=== PATIENT | female | born 1990 | race Caucasian/White ===

== ENCOUNTER 2016-05-26 08:37 | Emergency (ER) | payer OTHER ==
[2016-05-26 09:38] LABS: RBC URINE 57 /hpf (0-3); URINE BACTERIA OCC (<OCC); URINE BILIRUBIN NEGATIVE (NEGATIVE); URINE BLOOD 3+ (NEGATIVE); URINE COLOR Yellow (YELLOW); URINE GLUCOSE (UA) NORMAL (Normal); URINE KETONE NEGATIVE (NEGATIVE); URINE LEUKOCYTE ESTERASE 3+ Leu/uL (Negative); URINE PROTEIN 2+ mg/dL (NEGATIVE); URINE UROBILINOGEN NORMAL mg/dL (0.2-1.0); WBC CLUMPS MANY /hpf; WBC URINE 649 /hpf (0-5)
--- NOTE | 2016-05-26 10:42 | C.PDOC ---
History Of Present Illness 26 yr old female presents to the ER for evaluation of right flank pain, gradually worsening for the past 3 weeks. Patient reports of dysuria and intermittent hematuria. Patient denies fever, chills, nausea, vomiting, abdominal pain, diarrhea, vaginal irritation, vaginal discharge, weakness or numbness. Time Seen by Provider: 05/26/16 09:23 Chief Complaint (Nursing): Back Pain History Per: Patient History/Exam Limitations: no limitations Onset/Duration Of Symptoms: Gradual (Gradually worsening for the past 3 weeks) Past Medical History Reviewed: Historical Data, Nursing Documentation, Vital Signs Vital Signs: Last Vital Signs Temp 97.1 F L 05/26/16 11:20 Pulse 69 05/26/16 11:20 Resp 18 05/26/16 11:20 BP 104/69 05/26/16 11:20 Pulse Ox 100 05/26/16 11:20 Family History: States: No Known Family Hx - Social History Hx Alcohol Use: No Hx Substance Use: No - Immunization History Hx Tetanus Toxoid Vaccination: No Hx Influenza Vaccination: No Hx Pneumococcal Vaccination: No Review Of Systems Except As Marked, All Systems Reviewed And Found Negative. Constitutional: Negative for: Fever, Chills Gastrointestinal: Negative for: Nausea, Vomiting, Abdominal Pain, Diarrhea Genitourinary: Positive for: Dysuria, Hematuria (Intermittent ), Other (No vaginal irritation. ). Negative for: Vaginal Discharge Musculoskeletal: Positive for: Back Pain (Right flank pain ) Neurological: Negative for: Weakness, Numbness Physical Exam - Physical Exam Appears: Well, Non-toxic, No Acute Distress Skin: Normal Color, Warm, Dry, No Rash Eye(s): bilateral: Normal Inspection Nose: Normal, No Discharge Oral Mucosa: Moist, No Drooling Throat: Normal, No Erythema, No Exudate, No Drooling Neck: Normal, Normal ROM, Supple Cardiovascular: Rhythm Regular Respiratory: Normal Breath Sounds, No Stridor, No Wheezing Gastrointestinal/Abdominal: Normal Exam, Soft, No Tenderness, No Distention, No Guarding Back: Normal Inspection, No CVA Tenderness Extremity: Normal ROM, No Pedal Edema, No Deformity Neurological/Psych: Oriented x3, Normal Speech ED Course And Treatment O2 Sat by Pulse Oximetry: 98 Pulse Ox Interpretation: Normal Progress Note: On re-evaluation, pt is afebrile, hemodynamiclay stable. Tolerate Po well in ED. Ambulatory in ED, not in any apparent distress. PulseOx 100% RA. ENT: (-) acute findings. neck: (-) meningeal sign,. Lungs: CTA B/L, BS equal B/L. Abd: benign, (-) guarding, (-) rebound, (-) RLQ tenderness. Back: (-) CVA tenderness. Neuorlogicaly intact. UA results review c/w UTI. Pt has clinical findings c/w back strain. Pt advised on course of ds. ref. to F/u with PMD in 2-3 days for re-eval. return if any new changes. Medical Decision Making Medical Decision Making: PLAN: * Urinalysis * POC * Cipro PO * Pyridium PO Disposition Counseled Patient/Family Regarding: Studies Performed, Diagnosis, Need For Followup, Rx Given - Disposition Disposition: HOME/ ROUTINE Disposition Time: 09:50 Condition: STABLE Additional Instructions: Encourage fluids Take medication as prescribed Follow up with PMD In 2-3 days for re-evaluation. Return to ED if any worsening or new changes. 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 - Scribe Statement The provider has reviewed the documentation as recorded by the Scribe Reina Diez All medical record entries made by the Veneciaibe were at my direction and personally dictated by me. I have reviewed the chart and agree that the record accurately reflects my personal performance of the history, physical exam, medical decision making, and the department course for this patient. I have also personally directed, reviewed, and agree with the discharge instructions and disposition.
[2016-05-26 11:27] VITALS: BP 104/69; PULSE 69; RESP 18; TEMP 97.1
[2016-05-26 13:27] VITALS: O2SAT 98
== END 2016-05-26 11:25 | disposition home or self-care (01) ==
LOC: C.ER 08:37
DX: N39.0 Urinary tract infection, site not specified (principal); B96.20 Unspecified Escherichia coli [E. coli] as the cause of diseases classified elsewhere; R31.9 Hematuria, unspecified

== ENCOUNTER 2017-07-14 11:44 | Emergency (ER) | payer SELFPAY ==
[2017-07-14 12:09] VITALS: BP 107/69; PULSE 85; RESP 20; TEMP 98.6; O2SAT 100
--- NOTE | 2017-07-14 12:24 | C.PDOC ---
History Of Present Illness 27yo female, otherwise well, presents to ER with complaints of sore throat for the past 2 days with associated tactile fever. Patient also states she noted swelling to her throat and white patches on her throat. She is able to tolerate PO intake at home. Patient denies any headache, neck pain, neck stiffness, ear pain, shortness of breath, chest pain, nausea or vomiting. No other complaints. Time Seen by Provider: 07/14/17 12:05 Chief Complaint (Nursing): ENT Problem History Per: Patient History/Exam Limitations: None Onset/Duration Of Symptoms: Days (2) Current Symptoms Are (Timing): Still Present Past Medical History Reviewed: Historical Data, Nursing Documentation, Vital Signs Vital Signs: Last Vital Signs Temp 98.6 F 07/14/17 12:04 Pulse 85 07/14/17 12:04 Resp 20 07/14/17 12:04 BP 107/69 07/14/17 12:04 Pulse Ox 100 07/14/17 12:23 - Medical History PMH: No Chronic Diseases Surgical History: No Surg Hx Family History: States: No Known Family Hx - Social History Hx Alcohol Use: No Hx Substance Use: No - Immunization History Hx Tetanus Toxoid Vaccination: No Hx Influenza Vaccination: No Hx Pneumococcal Vaccination: No Review Of Systems Except As Marked, All Systems Reviewed And Found Negative. Constitutional: Positive for: Fever (tactile) ENT: Positive for: Throat Pain, Throat Swelling. Negative for: Ear Pain Cardiovascular: Negative for: Chest Pain Respiratory: Negative for: Shortness of Breath Gastrointestinal: Negative for: Nausea, Vomiting Neurological: Negative for: Headache Physical Exam - Physical Exam Appears: Non-toxic, No Acute Distress Skin: Normal Color, Warm, Dry Head: Atraumatic, Normacephalic Eye(s): bilateral: Normal Inspection, PERRL, EOMI Ear(s): Bilateral: Normal Nose: Normal Oral Mucosa: Moist Throat: Erythema, Exudate Neck: Supple Lymphatic: Adenopathy (cervical) Chest: Symmetrical Cardiovascular: Rhythm Regular Respiratory: Normal Breath Sounds, No Wheezing Gastrointestinal/Abdominal: Normal Exam, Soft, No Tenderness Neurological/Psych: Oriented x3 ED Course And Treatment O2 Sat by Pulse Oximetry: 100 (RA) Pulse Ox Interpretation: Normal Medical Decision Making Medical Decision Making: Impression: Sore throat Plan: -- Penicillin 1000mg PO -- Tylenol 975mg PO -- Motrin 600mg PO Patient to be discharged home with prescription for penicillin; instructed to take meds as prescribed. Patient informed to follow up with her PMD in 2-3 days. Disposition Counseled Patient/Family Regarding: Diagnosis, Need For Followup, Rx Given - Disposition Referrals: [facility] [Outside] Disposition: HOME/ ROUTINE Disposition Time: 12:21 Condition: STABLE Prescriptions: Ibuprofen [Motrin] 600 mg PO TID #15 tab Penicillin VK [Pen-Vee K] 2 tab PO BID #28 tab Instructions: Sore Throat, Adult (DC) Forms: Gen Discharge Inst Latvian, [email or web address] (Palestinian), [employer] (Latvian), Work Excuse - POA Present On Arrival: None - Clinical Impression Clinical Impression: Strep pharyngitis - Scribe Statement The provider has reviewed the documentation as recorded by the Veneciaibe (Kymberly Cartagena) Provider Attestation: All medical record entries made by the Veneciaibe were at my direction and personally dictated by me. I have reviewed the chart and agree that the record accurately reflects my personal performance of the history, physical exam, medical decision making, and the department course for this patient. I have also personally directed, reviewed, and agree with the discharge instructions and disposition.
== END 2017-07-14 12:34 | disposition home or self-care (01) ==
LOC: C.ER 11:44
DX: J02.0 Streptococcal pharyngitis (principal)

== ENCOUNTER 2017-11-01 14:39 | Emergency (ER) | payer OTHER ==
[2017-11-01 14:48] VITALS: BP 99/66; PULSE 72; RESP 16; TEMP 98; O2SAT 98
--- NOTE | 2017-11-01 15:04 | C.PDOC ---
History Of Present Illness 27 year old female presents to ED complaining of left upper back for the past two weeks. Patient reports the pain is exacerbated when she takes deep breaths. Denies trauma, lifting heavy object, nausea, vomiting, shortness of breath, weakness, numbness. Time Seen by Provider: 11/01/17 14:56 Chief Complaint (Nursing): Back Pain History Per: Patient History/Exam Limitations: no limitations Onset/Duration Of Symptoms: Days Current Symptoms Are (Timing): Still Present Past Medical History Reviewed: Historical Data, Nursing Documentation, Vital Signs Vital Signs: Last Vital Signs Temp 98 F 11/01/17 14:46 Pulse 72 11/01/17 14:46 Resp 16 11/01/17 14:46 BP 99/66 L 11/01/17 14:46 Pulse Ox 98 11/01/17 15:07 Surgical History: No Surg Hx Family History: States: No Known Family Hx - Social History Hx Alcohol Use: No Hx Substance Use: No - Immunization History Hx Tetanus Toxoid Vaccination: No Hx Influenza Vaccination: No Hx Pneumococcal Vaccination: No Review Of Systems Except As Marked, All Systems Reviewed And Found Negative. Respiratory: Negative for: Shortness of Breath Gastrointestinal: Negative for: Nausea, Vomiting Musculoskeletal: Positive for: Back Pain (left upper back) Neurological: Negative for: Weakness, Numbness Physical Exam - Physical Exam Appears: Non-toxic, No Acute Distress Skin: Warm, Dry, No Rash Head: Atraumatic, Normacephalic Eye(s): bilateral: Normal Inspection, PERRL, EOMI Oral Mucosa: Moist Throat: No Erythema, No Exudate Neck: Normal ROM, Supple Chest: Symmetrical Cardiovascular: Rhythm Regular Respiratory: Normal Breath Sounds, No Rales, No Rhonchi, No Wheezing Gastrointestinal/Abdominal: Soft, No Tenderness Back: Normal Inspection Extremity: Normal ROM, No Swelling Neurological/Psych: Oriented x3, Normal Speech, Normal Cognition, Normal Motor, Normal Sensation Gait: Steady ED Course And Treatment O2 Sat by Pulse Oximetry: 98 (RA) Pulse Ox Interpretation: Normal Medical Decision Making Medical Decision Making: Plan: * Chest x-ray On re-exam, the patient reports improvement of symptoms. Lungs are CTA, heart is RRR. Abdomen is soft, non-tender and tolerating PO well. Follow up with the medical doctor within 1-2 days. Return if worsened. Disposition - Disposition [facility]errals: [facility]Outside] [facility] Disposition: HOME/ ROUTINE Disposition Time: 15:45 Condition: GOOD Additional Instructions: Follow up with the medical doctor within 1-2 days. Return if worsened. 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 - Scribe Statement The provider has reviewed the documentation as recorded by the Scribe Kyle Tao All medical record entries made by the Veneciaibgopal were at my direction and personally dictated by me. I have reviewed the chart and agree that the record accurately reflects my personal performance of the history, physical exam, medical decision making, and the department course for this patient. I have also personally directed, reviewed, and agree with the discharge instructions and disposition.
--- NOTE | 2017-11-01 18:07 | RAD ---
Date of service: 11/01/2017 HISTORY: Left-sided pleuritic pain COMPARISON: No prior. TECHNIQUE: Chest PA and lateral FINDINGS: LUNGS: No active pulmonary disease. PLEURA: No significant pleural effusion identified. No pneumothorax apparent. CARDIOVASCULAR: Normal. OSSEOUS STRUCTURES: No significant abnormalities. VISUALIZED UPPER ABDOMEN: Likely overlying patient. Clinical correlation OTHER FINDINGS: Note made of a small polyp like radiopaque metallic density overlying left IMPRESSION: No active disease.
== END 2017-11-01 15:49 | disposition home or self-care (01) ==
LOC: C.ER 14:39
DX: M94.0 Chondrocostal junction syndrome [Tietze] (principal)

== ENCOUNTER 2018-02-11 08:56 | Emergency (ER) | payer OTHER ==
[2018-02-11 09:17] VITALS: BP 108/69; PULSE 85; RESP 14; TEMP 97.9; O2SAT 100
--- NOTE | 2018-02-11 10:24 | C.PDOC ---
History Of Present Illness 27 y/o female, 11 weeks , presents to the ER for evaluation of intermittent headache which has been present for the past 1 week. Patient stated that the pain is mainly in the left temporal region with radiation to the right temporal region sometimes. Patient reports that she took Tylenol without relief. She notes that she has some nausea. Denies having fever, neck pain, vomiting, abdominal pain, vaginal bleeding, and vaginal discharge. Time Seen by Provider: 02/11/18 09:22 Chief Complaint (Nursing): Headache History Per: Patient History/Exam Limitations: no limitations Onset/Duration Of Symptoms: Days Current Symptoms Are (Timing): Still Present Severity: Moderate Past Medical History Reviewed: Historical Data, Nursing Documentation, Vital Signs Vital Signs: Last Vital Signs Temp 97.9 F 02/11/18 09:13 Pulse 85 02/11/18 09:13 Resp 14 02/11/18 09:13 BP 108/69 02/11/18 09:13 Pulse Ox 100 02/11/18 09:13 - Medical History PMH: No Chronic Diseases Surgical History: Family History: States: No Known Family Hx - Social History Hx Alcohol Use: No Hx Substance Use: No - Immunization History Hx Tetanus Toxoid Vaccination: No Hx Influenza Vaccination: No Hx Pneumococcal Vaccination: No Review Of Systems Except As Marked, All Systems Reviewed And Found Negative. Constitutional: Negative for: Fever, Chills Gastrointestinal: Negative for: Nausea, Vomiting Genitourinary: Negative for: Vaginal Discharge, Vaginal Bleeding Musculoskeletal: Negative for: Neck Pain Neurological: Positive for: Headache Physical Exam - Physical Exam Appears: Non-toxic, No Acute Distress Skin: Normal Color, Warm, Dry Head: Atraumatic, Normacephalic Eye(s): bilateral: Normal Inspection Nose: Normal Oral Mucosa: Moist Neck: Supple Chest: Symmetrical Cardiovascular: Rhythm Regular Respiratory: Normal Breath Sounds, No Rales, No Rhonchi, No Wheezing Gastrointestinal/Abdominal: Soft, No Tenderness, No Guarding, No Rebound Neurological/Psych: Oriented x3, Normal Speech ED Course And Treatment O2 Sat by Pulse Oximetry: 100 (RA) Pulse Ox Interpretation: Normal Medical Decision Making Medical Decision Making: Plan: --Reglan PO --Tylenol PO Updates: On re-evaluation, patient states that she still has some pain. Disposition Counseled Patient/Family Regarding: Diagnosis, Need For Followup, Rx Given - Disposition Disposition: HOME/ ROUTINE Disposition Time: 10:53 Condition: STABLE Additional Instructions: Siga con cronin doctor. Chavez lopez. Vuelva a la teri de emergencia, si le da fiebre. Prescriptions: Acetaminophen [Tylenol 325mg tab] 650 mg PO BID #12 tab Metoclopramide [Reglan] 10 mg PO BID #6 tab Instructions: Headache, Adult (DC) Forms: Gen Discharge Inst Congolese, [employer] (Congolese), Work Excuse - POA Present On Arrival: None - Clinical Impression Clinical Impression: Headache - Scribe Statement The provider has reviewed the documentation as recorded by the Veneciaibgopal Martin Provider Attestation: All medical record entries made by the Scribe were at my direction and personally dictated by me. I have reviewed the chart and agree that the record accurately reflects my personal performance of the history, physical exam, medical decision making, and the department course for this patient. I have also personally directed, reviewed, and agree with the discharge instructions and disposition.
== END 2018-02-11 11:07 | disposition home or self-care (01) ==
LOC: C.ER 08:56
DX: R51 Headache (principal)